=== PATIENT | female | born 1950 | race Caucasian/White ===

== ENCOUNTER 2018-05-28 05:10 | Day surgery (SDC) | payer OTHER, BC ==
[2018-05-27 09:35] VITALS: BMI 31.7
[2018-05-28 10:04] LABS: PROTHROMBIN TIME (PATIENT) 11.8 SEC (9.7-13.0)
[2018-05-28 10:07] LABS: ACTIVATED PTT 39.4 SECONDS (25.2-36.5)
--- NOTE | 2018-05-28 10:38 | HP ---
History & Physical Update - Physical Physical: No Change - Assessment Assessment: No Change - Plan Plan: No Change (H&P reviwed , no changes . for hysteroscopy D&C polypectomy)
[2018-05-28] MEDS ORDERED: PROPOFOL 20 ML ONE (11:48)
[2018-05-28] MEDS ORDERED: MIDAZOLAM HCL 2 MG/2 ML SINGLE DOSE VIAL ONE (11:49)
[2018-05-28] MEDS ORDERED: ceFAZolin SODIUM 1 GM VIAL ONE (12:23)
[2018-05-28] MEDS ORDERED: SODIUM CHLORIDE 0.9% P/F 10 ML VIAL IJ ONE (12:23)
[2018-05-28] MEDS ORDERED: DEXAMETHASONE SOD PHOSPHATE 4 MG/1 ML VIAL ONE (12:23)
[2018-05-28] MEDS ORDERED: LIDOCAINE HCL/PF 2% SDV 5ML VIAL ONE (12:23)
[2018-05-28] MEDS ORDERED: oxyCODONE HCL 5 MG TABLET PO PRN (12:31)
[2018-05-28] MEDS ORDERED: ONDANSETRON 4 MG/2 ML VIAL IVPUSH PRN (12:31)
[2018-05-28] MEDS ORDERED: LACTATED RINGERS SOLUTION 1,000 ML IV SCH (12:45)
[2018-05-28 14:21] VITALS: BP 114/67; PULSE 59; TEMP 97.8
--- NOTE | 2018-05-28 22:04 | OP ---
DATE OF OPERATION: 05/28/2018 PREOPERATIVE DIAGNOSIS: Thickened endometrium, rule out endometrial polyp. POSTOPERATIVE DIAGNOSIS: Thickened endometrium, rule out endometrial polyp. PROCEDURE: Hysteroscopy, dilation and curettage. SURGEON: Harvey Pena MD ANESTHESIA: General. ESTIMATED BLOOD LOSS: 25 mL. DESCRIPTION OF PROCEDURE: The patient was taken to the operating room. Under adequate general anesthesia in dorsal lithotomy position, examination under anesthesia revealed external genitalia to be normal. Vagina was normal. The cervix was clean. No gross lesions. Uterus was normal size. adnexa no masses were palpable. With a weighted speculum in the vagina, anterior lip of the cervix was grasped with a single-tooth tenaculum. Uterine cavity was sounded to 8 cm. Then the cervix was slightly dilated. Hysteroscope was introduced. Visualization of endocervical canal appeared to be normal. There was endometrium for the most part that appeared to be atrophic. There was a patchy area in the lower uterine segment. No other abnormality, polyp, or fibroids seen. Then the hysteroscope was withdrawn. Cervix was gradually dilated with Hegar dilator then uterine cavity was curetted. The patient tolerated the procedure well and left the OR in good condition. Itz [id number]
--- NOTE | 2018-05-31 17:09 | PATH ---
Surgical Pathology Report Patient Name: JAIME DAHL [facility]. Rec. #: [id number] /Age/Gender: 1950 (Age: 67) / F Account: [id number] [facility] Taken: 05/28/2018 Received: 05/28/2018 Reported: 05/31/2018 Physicians: Harvey Pena M.D. Specimen(s) Received ENDOMETRIAL CURETTINGS POLYP Clinical History Endometrial polyp Final Diagnosis ENDOMETRIAL CURETTINGS, DILATION AND CURETTAGE: FRAGMENTS OF ENDOCERVICAL MUCOSA WITH MARKED ACUTE CERVICITIS AND BENIGN ECTOCERVICAL SQUAMOUS MUCOSA. NO DEFINITIVE ENDOMETRIAL GLANDS/TISSUE IDENTIFIED. Electronically Signed Whitney Maddox M.D. Gross Description Received in formalin labeled "endometrial curettings," is a 1.0 x 0.7 x 0.2 cm aggregate of marquez-pink soft tissue fragments. The formalin is filtered and the specimen is entirely submitted in one cassette. /05/28/2018 [facility]/2018
== END 2018-05-28 14:20 | disposition home or self-care (01) ==
LOC: JASU-SURG 05:10
PROVIDERS: ATTEND Obstetrics & Gynecology
PROC: 0UDB7ZX Extraction of Endometrium, Via Natural or Artificial Opening, Diagnostic (ICD-10-PCS; principal; 2018-05-28 11:00)
PROC: 0UJD8ZZ Inspection of Uterus and Cervix, Via Natural or Artificial Opening Endoscopic (ICD-10-PCS; 2018-05-28 11:00)
DX: R93.89 Abnormal findings on diagnostic imaging of other specified body structures (principal); I10 Essential (primary) hypertension
CPT/HCPCS: 36415; 85610; 85730; 88305-TC; 94760

== ENCOUNTER 2018-07-23 10:39 | Day surgery (SDC) | payer OTHER, BC | END 2018-07-24 10:23 | disposition home or self-care (01) | LOC: JASUSAT 10:39 → J3W 17:40 → JASUSAT 07-24 10:23 ==

== ENCOUNTER 2018-09-20 07:38 | Day surgery (SDC) | payer OTHER, BC ==
[2018-09-19 12:04] VITALS: BMI 30.9
[2018-09-20 09:36] VITALS: TEMP 97.6
[2018-09-20 11:33] VITALS: BP 105/61; PULSE 61
== END 2018-09-20 10:39 | disposition home or self-care (01) ==
LOC: JASU-ENDO 07:38
PROVIDERS: ATTEND Internal Medicine Gastroenterology
PROC: 0DJD8ZZ Inspection of Lower Intestinal Tract, Via Natural or Artificial Opening Endoscopic (ICD-10-PCS; principal; 2018-09-20 08:45)
DX: Z12.11 Encounter for screening for malignant neoplasm of colon (principal); K57.30 Diverticulosis of large intestine without perforation or abscess without bleeding

== ENCOUNTER 2023-06-23 19:11 | Emergency (ER) | payer OTHER, BC ==
[2023-06-23 19:19] VITALS: BP 123/80; PULSE 70; RESP 16; TEMP 97.9; BMI 30.9
[2023-06-23] MEDS ORDERED: DIPHTH,PERTUSS(ACELL),TET 0.5 ML DISP.SYRIN IM ONE (20:15)
[2023-06-23] MEDS: DIPHTH,PERTUSS(ACELL),TET 0.5 ML DISP.SYRIN IM ONE (20:20)
== END 2023-06-23 21:25 | disposition home or self-care (01) ==
LOC: FER 19:11
PROC: 3E0234Z Introduction of Serum, Toxoid and Vaccine into Muscle, Percutaneous Approach (ICD-10-PCS; principal; 2023-06-23)
DX: S81.011A Laceration without foreign body, right knee, initial encounter (principal); S50.311A Abrasion of right elbow, initial encounter; W01.0XXA Fall on same level from slipping, tripping and stumbling without subsequent striking against object, initial encounter
CPT/HCPCS: 73562-TC-RT-FY; 90471; 90715; 99283-25